=== PATIENT | male | born 1990 | race Caucasian/White ===

== ENCOUNTER 2016-07-26 17:56 | Emergency (ER) | payer OTHER ==
[~2016-07-26] VITALS: Ht 185.4 cm; Wt 159.0 kg
[~2016-07-26 17:56] MED LIST: BACL10TA PO; CIPR500T4 PO; DICL75 PO
[2016-07-26 17:59] VITALS: BP 172/115; PULSE 83; RESP 18; TEMP 98.2; O2SAT 98
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
[2016-07-26] MEDS ORDERED: KETOROLAC TROMETHAMINE 60 MG/2 ML (IM) VIAL IM ONE (18:45)
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
[2016-07-26 19:44] VITALS: BP 177/109; PULSE 77; RESP 20; O2SAT 96
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
[2016-07-26] MEDS ORDERED: MOBI15TA PO (20:57)
[2016-07-26] MEDS ORDERED: ULTR50TA5 PO (20:57)
[2016-07-26] MEDS ORDERED: TETANUS/DIPHTHERIA TOXOID ADULT 0.5 ML VIAL IM ONE (21:00)
== END 2016-07-26 21:24 | disposition home or self-care (01) ==
LOC: NEPA 17:56
DX: S16.1XXA Strain of muscle, fascia and tendon at neck level, initial encounter (principal); S30.810A Abrasion of lower back and pelvis, initial encounter; R07.89 Other chest pain; M79.605 Pain in left leg; M79.602 Pain in left arm; V03.90XA Pedestrian on foot injured in collision with car, pick-up truck or van, unspecified whether traffic or nontraffic accident, initial encounter
CPT/HCPCS: 70450; 71010; 72072; 72100; 72125; 72170; 73030; 73080; 73552; 73590; 96372; 99284; J1885

== ENCOUNTER 2016-09-20 04:50 | Emergency (ER) | payer SELFPAY ==
[~2016-09-20] VITALS: Ht 185.4 cm; Wt 168.0 kg
[~2016-09-20 04:50] MED LIST changes: -BACL10TA PO; -CIPR500T4 PO; -DICL75 PO; +MOBI15TA PO; +ULTR50TA5 PO
[2016-09-20 04:55] VITALS: BP 186/102; PULSE 86; RESP 18; TEMP 98.9; O2SAT 95
[2016-09-20] MEDS ORDERED: AMOX500T PO (06:12)
[2016-09-20] MEDS ORDERED: ALBU6.7H INH (06:12)
[2016-09-20] MEDS ORDERED: PRED-503 PO (06:12)
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
[2016-09-20] MEDS ORDERED: IBUPROFEN 800 MG TAB PO ONE (06:30)
[2016-09-20] MEDS ORDERED: AMOXICILLIN (TRIHYDRATE) 500 MG CAP PO ONE (06:30)
--- NOTE | 2016-09-20 06:32 | RADRPT ---
EXAM DATE/TIME: 09/20/2016 06:05 [facility] COMPARISON: CHEST SINGLE AP, July 26, 2016, 19:01. INDICATIONS : Bilateral rib pain. MEDICAL HISTORY : None. SURGICAL HISTORY : None. ENCOUNTER: Initial ACUITY: 1 day PAIN SCORE: 3/10 LOCATION: Bilateral chest FINDINGS: PA and lateral views of the chest demonstrate a normal-sized cardiac silhouette. There is no effusion , consolidation, or pneumothorax. The bones and soft tissues demonstrate no acute abnormality. CONCLUSION: No acute cardiopulmonary abnormality is identified. No rib fracture is seen. Mason Jorge MD on September 20, 2016 at 6:29 Board Certified Radiologist. This report was verified electronically.
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
== END 2016-09-20 06:39 | disposition home or self-care (01) ==
LOC: NETRI 04:50
DX: S63.501A Unspecified sprain of right wrist, initial encounter (principal); J40 Bronchitis, not specified as acute or chronic; V03.00XA Pedestrian on foot injured in collision with car, pick-up truck or van in nontraffic accident, initial encounter; Y93.89 Activity, other specified; Y92.410 Unspecified street and highway as the place of occurrence of the external cause; Y99.9 Unspecified external cause status
CPT/HCPCS: 71020; 73110; 99284; L3908

== ENCOUNTER 2016-09-24 11:40 | Emergency (ER) | payer SELFPAY ==
[~2016-09-24] VITALS: Ht 182.9 cm; Wt 175.0 kg
[~2016-09-24 11:40] MED LIST changes: +ALBU6.7H INH; +AMOX500T PO; +PRED-503 PO
[2016-09-24] MEDS ORDERED: DIPHTH/TETANUS/ACEL PERTUSSIS (BOOSTER) 0.5 ML VIAL/PFS IM ONE ×2 (11:53→11:57)
[2016-09-24] MEDS ORDERED: ceFAZolin 2 GM PREMIX 50 ML ONE (11:53)
[2016-09-24 11:56] VITALS: O2SAT 100
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
[2016-09-24 12:13] LABS: BASOPHIL # 0.1 TH/MM3 (0-0.2); BASOPHIL % 1.2 % (0.0-2.0); EOSINOPHIL # 0.2 TH/MM3 (0-0.4); HEMATOCRIT 41.1 % (39.0-51.0); HEMO FLAGS DIFF FINAL; LYMPHOCYTE # 3.7 TH/MM3 (1.0-4.8); MEAN CORPUSCULAR HEMOGLOBIN 28.2 PG (27.0-34.0); MONO % 7.5 % (0.0-8.0); NEUT % 46.3 % (16.0-70.0); PLATELET COUNT 288 TH/MM3 (150-450); RED BLOOD COUNT 4.95 MIL/MM3 (4.50-5.90); RED CELL DISTRIBUTION WIDTH 14.1 % (11.6-17.2); WHITE BLOOD COUNT 8.6 TH/MM3 (4.0-11.0)
[2016-09-24 12:15] LABS: I-STAT POTASSIUM 4.3 MMOL/L (3.5-4.9)
[2016-09-24] MEDS ORDERED: IOHEXOL 350 MG/ML 10 ML VIAL (for RAD DIAG) IV ONE (12:17)
[2016-09-24 12:24] VITALS: RESP 18; O2SAT 99
[2016-09-24] MEDS ORDERED: ONDANSETRON HCL 4 MG/2 ML VIAL ONE (12:24)
[2016-09-24] MEDS ORDERED: HYDROmorphone HCL PF 2 MG/ML VIAL ONE (12:24)
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
== END 2016-09-24 13:41 ==
LOC: NEPI 11:40 → EDBD 11:40 → MERGE 11:40 → NEPE 13:41
DX: S31.101A Unspecified open wound of abdominal wall, left upper quadrant without penetration into peritoneal cavity, initial encounter (principal); W34.00XA Accidental discharge from unspecified firearms or gun, initial encounter; Z23 Encounter for immunization
CPT/HCPCS: 71010; 71260; 74000; 74177; 82435; 82565; 82947; 84132; 84295; 84520; 85025; 86850; 86900; 86901; 86920; 90471; 90715; 96374; 99285; J0690; J1170; J2405; Q9967

== ENCOUNTER 2016-09-26 08:34 | Inpatient (IN) | payer OTHER ==
[2016-09-26] MEDS ORDERED: MORPHINE SULFATE 8 MG/ML INJ ONE (08:41)
[2016-09-26] MEDS ORDERED: ceFAZolin 2 GM PREMIX 50 ML ONE (08:42)
[2016-09-26 08:54] VITALS: O2SAT 99
[2016-09-26 08:59] LABS: I-STAT POTASSIUM 3.9 MMOL/L (3.5-4.9)
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
[2016-09-26 09:00] LABS: AUTOMATED NEUTROPHIL # 4.4 TH/MM3 (1.8-7.7); BASOPHIL # 0.1 TH/MM3 (0-0.2); BASOPHIL % 0.8 % (0.0-2.0); EOSINOPHIL # 0.3 TH/MM3 (0-0.4); EOSINOPHIL % 2.9 % (0.0-4.0); HEMATOCRIT 39.1 % (39.0-51.0); HEMO FLAGS DIFF FINAL; LYMPH % 39.2 % (9.0-44.0); LYMPHOCYTE # 3.6 TH/MM3 (1.0-4.8); MEAN CELL VOLUME 84.2 FL (80.0-100.0); MEAN CORPUSCULAR HEMOGLOBIN 27.5 PG (27.0-34.0); MEAN CORPUSCULAR HGB CONC 32.7 % (32.0-36.0); MONO % 10.2 % (0.0-8.0); NEUT % 46.9 % (16.0-70.0); PLATELET COUNT 265 TH/MM3 (150-450); RED BLOOD COUNT 4.64 MIL/MM3 (4.50-5.90); WHITE BLOOD COUNT 9.3 TH/MM3 (4.0-11.0)
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
[2016-09-26 09:08] LABS: APTT (PATIENT) 22.9 SEC (24.3-30.1); PROTHROMBIN TIME - PATIENT 10.6 SEC (9.8-11.6)
[2016-09-26] MEDS ORDERED: IOHEXOL 350 MG/ML 10 ML VIAL (for RAD DIAG) IV ONE (09:08)
[2016-09-26] MEDS ORDERED: SOD PHOSPHATE/SOD BIPHOSPHATE (ADULT) ENEMA 133ML RECTAL ONE (09:15)
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
[2016-09-26] MEDS ORDERED: SODIUM CHLORIDE 0.9% FLUSH 10 ML FLUSH IV FLUSH PRN (09:45)
[2016-09-26] MEDS ORDERED: CHLORHEXIDINE GLUCONATE 2 % 1 PACK (2 CLOTHS) TOP PRN (09:45)
[2016-09-26] MEDS ORDERED: MISCELLANEOUS NURSING INFORMATION XX SCH (09:45)
[2016-09-26] MEDS ORDERED: ONDANSETRON HCL 4 MG/2 ML VIAL IV PRN (09:45)
[2016-09-26] MEDS ORDERED: MAGNESIUM HYDROXIDE SUSP 30 ML CUP PO PRN (09:45)
[2016-09-26] MEDS ORDERED: MORPHINE SULFATE 8 MG/ML INJ IV PUSH ONE (10:00)
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
[2016-09-26 11:47] VITALS: BP 141/58; PULSE 78; RESP 23; O2SAT 99
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
[2016-09-26 13:00] VITALS: BP 152/85; PULSE 64; RESP 18; TEMP 98.2; O2SAT 99
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
[2016-09-26] MEDS: ENOXAPARIN SODIUM 30 MG/0.3 ML SYRINGE SQ SCH ×2 (15:15→23:24)
[2016-09-26] MEDS: metroNIDAZOLE 500 MG INJ 100 ML IV SCH ×2 (15:16→20:03)
[2016-09-26 16:00] VITALS: BP 146/87; PULSE 86; RESP 18; TEMP 98.7; O2SAT 95
[2016-09-26 20:00] VITALS: BP 144/87; PULSE 77; RESP 18; TEMP 97.5; O2SAT 98
[2016-09-26] MEDS: DOCUSATE SODIUM 100 MG CAP PO SCH (20:03)
[2016-09-26] MEDS: CHLORHEXIDINE GLUCONATE 2 % 1 PACK (2 CLOTHS) TOP SCH (22:35)
[2016-09-27] VITALS: BP 131/77; PULSE 81; RESP 17; TEMP 96.3; O2SAT 100
[2016-09-27 04:00] VITALS: BP 152/87; PULSE 86; RESP 16; TEMP 98; O2SAT 99
[2016-09-27] MEDS: metroNIDAZOLE 500 MG INJ 100 ML IV SCH ×3 (04:58→20:23)
[2016-09-27 05:41] LABS: AUTOMATED NEUTROPHIL # 5.6 TH/MM3 (1.8-7.7); BASOPHIL % 0.2 % (0.0-2.0); EOSINOPHIL # 0.2 TH/MM3 (0-0.4); EOSINOPHIL % 2.4 % (0.0-4.0); HEMATOCRIT 36.4 % (39.0-51.0); HEMO FLAGS DIFF FINAL; LYMPHOCYTE # 2.2 TH/MM3 (1.0-4.8); MEAN CELL VOLUME 82.2 FL (80.0-100.0); MEAN CORPUSCULAR HEMOGLOBIN 28.3 PG (27.0-34.0); MEAN CORPUSCULAR HGB CONC 34.5 % (32.0-36.0); MONO % 9.5 % (0.0-8.0); NEUT % 62.9 % (16.0-70.0); PLATELET COUNT 250 TH/MM3 (150-450); RED BLOOD COUNT 4.43 MIL/MM3 (4.50-5.90); WHITE BLOOD COUNT 8.9 TH/MM3 (4.0-11.0)
[2016-09-27 05:57] LABS: BICARBONATE 27.5 MEQ/L (21.0-32.0); POTASSIUM 3.8 MEQ/L (3.5-5.1)
[2016-09-27] MEDS: DOCUSATE SODIUM 100 MG CAP PO SCH ×3 (07:52→20:23)
[2016-09-27 08:00] VITALS: BP 121/76; PULSE 69; RESP 19; TEMP 97; O2SAT 96
[2016-09-27] MEDS: ENOXAPARIN SODIUM 30 MG/0.3 ML SYRINGE SQ SCH (11:00)
[2016-09-27 12:00] VITALS: BP 165/89; PULSE 76; RESP 19; TEMP 96.5; O2SAT 96
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
[2016-09-27] MEDS ORDERED: MAGNESIUM HYDROXIDE SUSP 30 ML CUP PO PRN (13:15)
[2016-09-27 16:00] VITALS: BP 150/97; PULSE 77; RESP 18; TEMP 98.6; O2SAT 100
[2016-09-27 20:00] VITALS: BP 132/82; PULSE 78; RESP 18; TEMP 97.2; O2SAT 97
[2016-09-28] VITALS: BP 142/81; PULSE 70; RESP 18; TEMP 96.5; O2SAT 97
[2016-09-28] MEDS: ENOXAPARIN SODIUM 30 MG/0.3 ML SYRINGE SQ SCH ×3 (00:09→22:24)
[2016-09-28] MEDS: CHLORHEXIDINE GLUCONATE 2 % 1 PACK (2 CLOTHS) TOP SCH (04:00)
[2016-09-28] MEDS: metroNIDAZOLE 500 MG INJ 100 ML IV SCH ×3 (05:01→20:00)
[2016-09-28 08:07] VITALS: BP 140/84; PULSE 72; RESP 19; TEMP 96.7; O2SAT 97
[2016-09-28] MEDS: DOCUSATE SODIUM 100 MG CAP PO SCH ×4 (09:00→22:25)
[2016-09-28 11:57] VITALS: BP 113/57; PULSE 70; RESP 19; TEMP 97.5; O2SAT 98
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
[2016-09-28 15:09] VITALS: BP 145/89; PULSE 68; RESP 19; TEMP 97; O2SAT 98
[2016-09-28 20:50] VITALS: BP 153/83; PULSE 68; RESP 17; TEMP 98.4; O2SAT 96
[2016-09-29 00:42] VITALS: BP 109/58; PULSE 69; RESP 17; TEMP 97.9; O2SAT 97
[2016-09-29] MEDS: CHLORHEXIDINE GLUCONATE 2 % 1 PACK (2 CLOTHS) TOP SCH (04:00)
[2016-09-29] MEDS ORDERED: metroNIDAZOLE 500 MG INJ 100 ML IV SCH (04:00)
[2016-09-29] MEDS: DOCUSATE SODIUM 100 MG CAP PO SCH (07:17)
[2016-09-29 08:00] VITALS: BP 157/92; PULSE 78; RESP 19; TEMP 98.5; O2SAT 98
[2016-09-29] MEDS: ENOXAPARIN SODIUM 30 MG/0.3 ML SYRINGE SQ SCH (12:41)
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
== END 2016-09-29 15:44 | DRG 605 ==
LOC: NEPI 08:34 → NEDA 09:22 → MERGE 09:22 → EEVIPCON 09:22 → EDBD 09:22 → N06B 12:57
PROVIDERS: ADMIT Surgery; ATTEND Surgery
DX: S31.829A Unspecified open wound of left buttock, initial encounter (principal); X95.9XXA Assault by unspecified firearm discharge, initial encounter; Y92.410 Unspecified street and highway as the place of occurrence of the external cause
CPT/HCPCS: 71260; 72170; 74177; 76937; 80048; 82435; 82565; 82947; 84132; 84295; 84520; 85025; 85610; 85730; 86850; 86900; 86901; 94150; 96361; 96374; 96375; J0690; J1650; J2270; Q9967